=== PATIENT | female | born 1990 | race Caucasian/White ===

== ENCOUNTER → 2019-08-17 07:51 | Outpatient (CLI) | payer OTHER, SELFPAY ==
--- NOTE | ~2019-08-17 | US_ITS ---
EXAMINATION: US right upper quadrant DATE: 08/17/2019 08:41 INDICATION: Nonalcoholic cirrhosis, autoimmune hepatitis TECHNIQUE: Multiple grayscale and Doppler ultrasound images of the abdomen were obtained. COMPARISON: 02/03/2019 FINDINGS: Bowel gas obscures visualization of the pancreas. The visualized portions of the pancreas a re unremarkable. The liver demonstrates heterogeneous echotexture with coarsened echogenicity. No foc al liver mass is identified. There is nodularity of the liver surface. Normal hepatopetal flow in the main portal vein. The gallbladder is normal with no abnormal wall thickening, pericholecystic fluid or stones. The normal common bile duct measures 4 mm. There was no sonographic Brewster sign. IMPRESSION: 1. Sonographic findings consistent with history of cirrhosis. No liver mass identified. Reviewed, dictated and finalized at location B. IMPRESSION: 1. Sonographic findings consistent with history of cirrhosis. No liver mass ayesha ntified.
== END ==
PROVIDERS: PCP Internal Medicine; Visit Provider Internal Medicine Gastroenterology
DX: K74.60 Unspecified cirrhosis of liver (principal); K75.4 Autoimmune hepatitis
CPT/HCPCS: 76705

== ENCOUNTER → 2020-03-10 07:55 | Outpatient (CLI) | payer OTHER, SELFPAY ==
--- NOTE | ~2020-03-10 | US_ITS ---
EXAMINATION: US right upper quadrant EXAM DATE: 03/10/2020 08:33 INDICATION: Autoimmune hepatitis. Follow-up. TECHNIQUE: Multiple grayscale and Doppler images of the abdomen right upper quadrant were obtained (b y a technologist who performed the scan) and subsequently reviewed. There is no prior study for rashad dunbar. FINDINGS: The pancreatic head and body are normal in appearance. The pancreatic tail is not visualized. Liver has mildly diffusely heterogeneous echogenicity, probably sequela from patient's known autoimmune he patitis. There are no focal liver lesions identified. There is no evidence of intrahepatic biliary duct dilation. Portal venous flow was seen in the hepatopedal, normal direction and has normal Dopp ler waveform. No right-sided hydronephrosis. Common bile duct measures 4 mm, which is normal. The gallbladder wall is normal in thickness, with ex pected amount of distention. No sonographic evidence of pericholecystic fluid. There is no cholelit hiases. Technologist performing exam reports patient did not demonstrate sonographic Brewster's sign. Please note that this sign is less reliable in patients who have received pain medication. IMPRESSION: Mildly diffusely heterogeneous liver echogenicity. Nonspecific but could be from patient' s underlying condition. Reviewed, dictated and finalized at location B. IND MILL OPERATOR IMPRESSION: Mildly diffusely heterogeneous liver echogenicity. Nonspecific but could be from patient's underlying condition.
== END ==
PROVIDERS: PCP Internal Medicine; Visit Provider Internal Medicine Gastroenterology
DX: K75.4 Autoimmune hepatitis (principal); K74.60 Unspecified cirrhosis of liver
CPT/HCPCS: 76705

== ENCOUNTER → 2020-09-08 07:48 | Outpatient (CLI) | payer OTHER, SELFPAY ==
--- NOTE | ~2020-09-08 | US_ITS ---
EXAMINATION: US abdomen limited DATE: 09/08/2020 08:37 INDICATION: Autoimmune hepatitis TECHNIQUE: Multiple grayscale and Doppler ultrasound images of the abdomen were obtained. COMPARISON: 03/10/2020 FINDINGS: The head and body of the pancreas are normal. The pancreatic tail is obscured by bowel gas. The liver demonstrates heterogeneous echotexture with coarsened echogenicity. No focal liver lesion is identified. There is nodularity of the liver surface. Normal hepatopetal flow in the main portal v ein. The gallbladder is normal with no abnormal wall thickening, pericholecystic fluid or stones. The normal common bile duct measures 4 mm. There was no sonographic Brewster sign. The enlarged spleen juana sures 19 cm. IMPRESSION: 1. Findings consistent with history of cirrhosis. 2. Splenomegaly, consistent with portal hypertension. Reviewed, dictated and finalized at location A.
== END ==
PROVIDERS: Visit Provider Internal Medicine Gastroenterology
DX: K75.4 Autoimmune hepatitis (principal); K74.60 Unspecified cirrhosis of liver; R16.1 Splenomegaly, not elsewhere classified
CPT/HCPCS: 76705

== ENCOUNTER 2020-10-17 10:17 | Emergency (ER) | payer OTHER, SELFPAY ==
[2020-10-17 10:39] VITALS: BP 120/72; PULSE 72; RESP 20; TEMP 37.3; O2SAT 99
--- NOTE | 2020-10-17 10:47 | ED.URI ---
HPI - URI/Sore Throat General Chief Complaint: Upper Respiratory Infection Stated Complaint: cough Time Seen by Provider: 10/17/20 10:45 Source: patient Mode of arrival: ambulatory Limitations: no limitations History of Present Illness HPI Narrative: Erica Christiansen is a 30 yo female with a PMH of autoimmune hepatitis who comes to [facility] with complaints of throat pain and ear fullness sinus fullness that started last Tuesday. She has been taking [place]el[place] cold plus limited amounts through the week with no improvement. She does not want to take a lot of medication because of her liver although she is very stable at this time Related Data Home Medications Medication Instructions Recorded Confirmed azathioprine 75 mg tablet 75 mg PO DAILY 03/26/19 10/17/20 nadolol 20 mg tablet 20 mg PO ONCE 03/26/19 10/17/20 furosemide 20 mg PO DAILY 10/17/20 10/17/20 spironolactone 50 mg PO DAILY 10/17/20 10/17/20 Allergies Allergy/AdvReac Type Severity Reaction Status Date / Time cat dander Allergy Mild Sneezing Verified 10/17/20 10:59 grass pollen Allergy Mild Sneezing Verified 10/17/20 10:59 Review of Systems Review of Systems: Narrative: CONSTITUTIONAL: Denies fever, chills, sweats. EYES: Denies visual changes, redness, discharge. ENT: Denies rhinorrhea, congestion, has sore throat, has bilateral otalgia. CARDIOVASCULAR: Denies chest pain, palpitations, edema. RESPIRATORY: Denies dyspnea, wheezing, dry cough GASTROINTESTINAL: Denies abdominal pain, nausea, vomiting, diarrhea. GENITOURINARY: Denies dysuria, hematuria, abnormal discharge SKIN: Denies rash or itching. NEUROLOGIC: Denies numbness, or focal weakness. PSYCHIATRIC: Denies anxiety or depression. [facility]LY [facility] Past Medical History Medical History Autoimmune hepatitis Hepatitis Surgical History Surgical History Hx of LASIK Clawson teeth removed Family History Family History Father Hypertension Sibling Hypertension Grandparent Family history of malignant neoplasm of breast in first degree relative Social History Social History Smoking status: Never smoker Second hand tobacco smoke exposure: No Alcohol intake: current Gender identity (if verbalized by the patient): Female Comments At time of signature, I agree with nursing past medical, surgical, social and family history. There is no relevant family history pertinent to the presenting complaint. Exam Narrative: Exam Narrative: GENERAL: This is a well-nourished, well-developed patient, in mild distress. HEAD: normocephalic, atraumatic. EYES: Sclera clear/white. Vision is grossly intact. EARS: External ears normal, auditory canals clear and without drainage, TMs with fluid behind them without perforation. Hearing grossly intact. NOSE: External nose normal without nasal discharge, nares with redness, no rhinorrhea. Ethmoid sinus tenderness THROAT: Mucous membranes moist, posterior pharynx erythema NECK: Neck supple, left-sided submandibular lymph node tenderness able to swallow without difficulty CARDIOVASCULAR: Regular rate and rhythm without murmurs, gallops, or rubs. RESPIRATORY: Clear to auscultation. Breath sounds equal bilaterally. No wheezes, rales, or rhonchi. GASTROINTESTINAL: Abdomen soft, SKIN: warm, intact with no suspicious lesions or rash, good texture and turgor. NEURO: awake, alert, and oriented to person, place and time. There were no obvious focal neurologic abnormalities. Steady gait EXTREMITIES: Normal range of motion. BACK: Nontender without deformity Course Course Emergency Course: [facility] complaints of sore throat ear pain and sinus fullness for a week; she has been taking this sinus medication without improvement Strep test negat
== END 2020-10-17 11:24 | disposition home or self-care (01) ==
PROVIDERS: Emergency Provider Nurse Practitioner; PCP Internal Medicine
DX: J02.9 Acute pharyngitis, unspecified (principal); H66.003 Acute suppurative otitis media without spontaneous rupture of ear drum, bilateral; K75.4 Autoimmune hepatitis
CPT/HCPCS: 87081; 87880; 99213; G0463

== ENCOUNTER → 2021-07-11 07:29 | Outpatient (CLI) | payer OTHER, SELFPAY ==
--- NOTE | ~2021-07-11 | US_ITS ---
EXAMINATION: US right upper quadrant DATE: 07/11/2021 07:54 INDICATION: Autoimmune hepatitis. TECHNIQUE: Multiple grayscale and Doppler ultrasound images of the abdomen were obtained. COMPARISON: Ultrasound 09/08/2020 FINDINGS: The visualized portions of the head and body of the pancreas are normal. The liver demonstr ates coarsened echotexture and surface nodularity, consistent with cirrhosis. There is normal flow in main portal vein. The gallbladder is normal in size. No gallstones or gallbladder wall thickening. T here was no sonographic Brewster sign. The common duct is normal and measures 4 mm. IMPRESSION: 1. Cirrhosis of the liver. Reviewed, dictated and finalized at location A. UTER EQUIPMENT REPAIRER IMPRESSION: 1. Cirrhosis of the liver.
== END ==
PROVIDERS: Visit Provider Internal Medicine Gastroenterology
DX: K75.4 Autoimmune hepatitis (principal); K74.60 Unspecified cirrhosis of liver
CPT/HCPCS: 76705

== ENCOUNTER → 2022-01-28 07:50 | Outpatient (CLI) | payer OTHER, SELFPAY ==
--- NOTE | ~2022-01-28 | US_ITS ---
US right upper quadrant DATE: 01/28/2022 08:28 INDICATION: Nonalcoholic cirrhosis. Autoimmune hepatitis. Splenomegaly. TECHNIQUE: Real-time imaging of liver, pancreas, gallbladder COMPARISON: 07/11/2021 right upper quadrant abdominal ultrasound examination FINDINGS: There is coarse heterogeneous echotexture of the liver surface nodularity consistent with c irrhosis. Normal hepatopedal portal vein flow direction. No gallstones or gallbladder wall thickening or abnormal pericholecystic fluid collection. Negative s onographic Brewster's sign. The gallbladder measures 3 mm, normal. The pancreas is not well demonstrated due to interference from overlying bowel gas. IMPRESSION: Cirrhosis Reviewed, dictated and finalized at Location A. Reviewed, dictated and finalized at location B. IMPRESSION: Cirrhosis
== END ==
PROVIDERS: PCP Internal Medicine; Visit Provider Internal Medicine Gastroenterology
DX: K74.60 Unspecified cirrhosis of liver (principal)
CPT/HCPCS: 76705

== ENCOUNTER → 2022-12-02 10:08 | Outpatient (CLI) | payer OTHER, SELFPAY ==
--- NOTE | ~2022-12-02 | US_ITS ---
Limited Abdominal Sonogram: Real-time sonographic imaging of the right upper quadrant was performed. Clinical History: Nonalcoholic cirrhosis Findings: The liver appears heterogeneous, with no definite evidence of mass lesion or bile duct dil atation. Main portal vein demonstrates normal direction of flow. The gallbladder is well distended, a nd appears normal with no evidence of gallstone or wall thickening. The common bile duct measures 4 m m. The visualized pancreas, aorta, and IVC are unremarkable. Impression: Heterogeneous liver, which is somewhat poorly evaluated overall. Appearance suggests nonspecific school clerk renuka liver disease. Correlate clinically. Reviewed, dictated and finalized at location M. Impression: Heterogeneous liver, which is somewhat poorly evaluated overall. Appearance sug gests nonspecific chronic liver disease. Correlate clinically.
== END ==
PROVIDERS: PCP Internal Medicine; Visit Provider Internal Medicine Gastroenterology
DX: K74.60 Unspecified cirrhosis of liver (principal)
CPT/HCPCS: 76705

== ENCOUNTER → 2023-06-03 08:20 | Outpatient (CLI) | payer OTHER, SELFPAY ==
--- NOTE | ~2023-06-03 | US_ITS ---
US abdomen limited INDICATION: Autoimmune hepatitis PROCEDURE: Realtime right upper abdominal ultrasound. COMPARISON: No prior studies for comparison. FINDINGS: The pancreas is normal without focal mass or pancreatic ductal dilation. Liver echotexture is increased and heterogeneous, consistent with fatty infiltration. There is normal directional harpreet w in the portal vein. Spleen is enlarged measuring 16.1 cm. The gallbladder is normal without stones, gallbladder wall thickening or pericholecystic fluid. Comm on bile duct measures 3 mm. No sonographic Brewster's sign. IMPRESSION: 1: Diffusely increased liver echotexture with heterogeneous appearance, consistent with fatty infiltr ation. 2: Splenomegaly. Reviewed, dictated and finalized at location B. T EXPERIENCE SPECIALIST IMPRESSION: 1: Diffusely increased liver echotexture with heterogeneous appearance, consist ent with fatty infiltration. 2: Splenomegaly.
== END ==
PROVIDERS: PCP Internal Medicine Gastroenterology; Visit Provider Internal Medicine Gastroenterology
DX: K75.4 Autoimmune hepatitis (principal); K74.60 Unspecified cirrhosis of liver; R16.1 Splenomegaly, not elsewhere classified
CPT/HCPCS: 76705

== ENCOUNTER 2023-11-21 07:47 | Outpatient (CLI) | payer OTHER, SELFPAY ==
--- NOTE | ~2023-11-21 | US_ITS ---
COMPLETE ABDOMINAL ULTRASOUND Ordering provider: Arnaldo Uribe, History: . Autoimmune hepatitis . Comparison: None. FINDINGS: LIVER: Normal size and heterogeneous echotexture. No focal hepatic lesions or perihepatic fluid colle ctions are identified. Normal flow of the portal vein. GALLBLADDER: Unremarkable. No evidence for stones, sludge, gallbladder wall thickening or pericholecy stic fluid collections. Wall thicknesses 0.3 cm. A negative sonographic Brewster's sign was noted. BILIARY DUCTS: No evidence for intra or extrahepatic biliary dilation. Common bile duct measures 4 mm in diameter which is within normal limits. PANCREAS: Not well demonstrated. SPLEEN: Probably enlarged. KIDNEYS: Right measures 11.8 cm in length. There is no evidence for hydronephrosis, solid renal mass, renal calculi or perinephric fluid collections. No renal cysts. UPPER ABDOMINAL AORTA: Normal in caliber. IVC: Patent. FREE FLUID: None. IMPRESSION: Liver cirrhosis. Hepatitis is possible. Highly suggestive of splenomegaly. Pancreas is not well demonstrated. Otherwise, Unremarkable right upper quadrant ultrasound.. Reviewed, dictated and finalized at location A.
== END 2023-11-21 07:48 ==
PROVIDERS: PCP Internal Medicine Gastroenterology; Visit Provider Internal Medicine Gastroenterology
DX: K75.4 Autoimmune hepatitis (principal); K74.69 Other cirrhosis of liver
CPT/HCPCS: 76705

== ENCOUNTER 2024-06-22 09:25 | Outpatient (CLI) | payer OTHER, SELFPAY ==
--- NOTE | ~2024-06-22 | US_ITS ---
US right upper quadrant INDICATION: Autoimmune hepatitis PROCEDURE: Realtime right upper abdominal ultrasound. COMPARISON: No prior studies for comparison. FINDINGS: Pancreas is not well visualized. Liver echotexture is increased and heterogeneous without discrete mass. There is normal directional flow in the portal vein. The gallbladder is normal without stones, gallbladder wall thickening or pericholecystic fluid. Comm on bile duct measures 4 mm. No sonographic Brewster's sign. IMPRESSION: 1: Increased liver echotexture with heterogeneous appearance, compatible with hepatitis. No discrete mass. Reviewed, dictated and finalized at location B. INTERN IMPRESSION: 1: Increased liver echotexture with heterogeneous appearance, compatible with h epatitis. No discrete mass.
== END 2024-06-22 09:26 | disposition home or self-care (01) ==
PROVIDERS: PCP Internal Medicine Gastroenterology; Visit Provider Internal Medicine Gastroenterology
DX: K75.4 Autoimmune hepatitis (principal); K74.60 Unspecified cirrhosis of liver; K76.6 Portal hypertension
CPT/HCPCS: 76705

== ENCOUNTER 2025-01-04 08:23 | Outpatient (CLI) | payer OTHER, SELFPAY ==
--- NOTE | ~2025-01-04 | US_ITS ---
US abdomen limited INDICATION: Nonalcoholic cirrhosis PROCEDURE: Realtime right upper abdominal ultrasound. COMPARISON: No prior studies for comparison. FINDINGS: The pancreas is normal without focal mass or pancreatic ductal dilation. Liver echotexture is increased with heterogeneous appearance. Liver surface is nodular, compatible cirrhosis. There is normal directional flow in the portal vein. The gallbladder is normal without stones, gallbladder wall thickening or pericholecystic fluid. Common bile duct measures 3 mm. No sonographic Brewster's sign. IMPRESSION: 1: Cirrhosis of the liver. Reviewed, dictated and finalized at location O. IMPRESSION: 1: Cirrhosis of the liver.
== END 2025-01-04 08:24 | disposition home or self-care (01) ==
PROVIDERS: PCP Internal Medicine; Visit Provider Internal Medicine Gastroenterology
DX: K74.60 Unspecified cirrhosis of liver (principal)
CPT/HCPCS: 76705